=== PATIENT | female | born 1960 | race Caucasian/White ===

== ENCOUNTER → 2021-09-15 | Outpatient (CLI) | payer BC ==
[~2021-09-15] MED LIST: EFFEXOR XR75 MG/CAP PO; METHADONE H10 MG/TAB PO; NORCO 325 MG-7.1 TAB PO; SINEQUAN 5050 MG/CAP PO
== END ==
LOC: MC.RAD 10:30
DX: Z12.31 Encounter for screening mammogram for malignant neoplasm of breast (principal)